=== PATIENT | male | born 1970 | race Caucasian/White ===

== ENCOUNTER 2016-11-30 17:02 | Emergency (ER) | payer OTHER, BC ==
[~2016-11-30] VITALS: Ht 182.9 cm; Wt 86.0 kg
[~2016-11-30 17:02] MED LIST: AMLO2.5T2 PO; ASPCH81X PO; CETI10CH PO; FLNIN NAE; LSN/2025 PO
[2016-11-30 17:05] VITALS: TEMP 36.9; Ht 182.9 cm; Wt 86.0 kg
[2016-11-30] MEDS ORDERED: IBUPROFEN 800 MG TAB PO STA (17:08)
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
--- NOTE | 2016-11-30 17:48 | DIAGNOSTIC IMAGING REPORT ---
RIGHT KNEE 3 VIEWS CLINICAL HISTORY: right knee pain, injury Right pain. Trauma. COMPARISON: None. DISCUSSION: The bones and joint spaces appear intact. There is no evidence of fracture, dislocation or bony disease. There is no evidence for soft tissue swelling. IMPRESSION: Negative study. Electronically signed by: Igor Benitez M.D. 11/30/2016 5:47 PM Dictated Date/Time: 11/30/2016 5:47 PM
[2016-11-30] MEDS ORDERED: FLUT1SPR12 NAE (17:49)
[2016-11-30 18:14] VITALS: BP 142/93; PULSE 80; O2SAT 96
[2016-12-11] MEDS ORDERED: AMLO-110 PO (08:24)
[2016-12-11] MEDS ORDERED: FLUT1SPR12 NAE (08:24)
[2016-12-11] MEDS ORDERED: BUPR100T13 PO (08:24)
[2016-12-11] MEDS ORDERED: LSN/2025 PO (08:24)
[2016-12-13] MEDS ORDERED: ASPI325T45 PO (16:25)
[2016-12-13] MEDS ORDERED: HYDR-5688 PO (16:25)
[2016-12-13] MEDS ORDERED: TRAM-10 PO (16:25)
== END 2016-11-30 18:16 | disposition home or self-care (01) ==
LOC: EDBD 17:02 → C.EDD 17:03
DX: M25.561 Pain in right knee (principal); I10 Essential (primary) hypertension

== ENCOUNTER → 2016-12-04 | Outpatient (CLI) | payer OTHER ==
[~2016-12-04] MED LIST changes: +AMLO-110 PO; -ASPCH81X PO; +ASPI325T45 PO; +BUPR100T13 PO; -FLNIN NAE; +FLUT1SPR12 NAE; +HYDR-5688 PO; +TRAM-10 PO
--- NOTE | 2016-12-04 18:07 | DIAGNOSTIC IMAGING REPORT ---
MRI OF THE RIGHT KNEE CLINICAL HISTORY: Right knee injury and pain. COMPARISON STUDY: Radiograph of the right knee dated 11/30/2016. TECHNIQUE: MRI of the right knee was performed utilizing proton density, T1, and T2-weighted sequences in the axial, sagittal, coronal planes. IV contrast was not administered for this examination. FINDINGS: Menisci: There is a large bucket-handle type tear involving the body and posterior horn of the lateral meniscus. The fragment is flipped centrally into the joint space, best seen on coronal image #19. The medial meniscus appears truncated, possibly related to previous meniscectomy. The remaining portions of the meniscus appear intact. Ligaments: The anterior and posterior cruciate ligaments are intact. The medial and lateral collateral ligaments are within normal limits. Extensor mechanism: The extensor mechanism is intact. Hoffa's fat pad is normal in appearance. Increased signal/edema is seen within the suprapatellar fat pad. Articular cartilage and bone: The articular cartilage is intact and well maintained all 3 compartments. Normal marrow signal is preserved of the visualized bony structures. Joint effusion: There is a large joint effusion. Soft tissues: There is mild intramuscular edema/strain suggested within the vastus lateralis. Strain/edema is also identified within both hips and the gastrocnemius muscle, medial greater than lateral. Fluid is seen tracking along the lateral head of the gastrocnemius. Soft tissue edema is noted along the lateral aspect of the knee and in the popliteal fossa. The musculature surrounding the knee joint is normal in bulk. IMPRESSION: 1. There is a large bucket-handle type tear involving the body and posterior horn of the lateral meniscus. The fragment is flipped centrally into the joint space along the intercondylar notch. 2. There is truncation of the medial meniscus suggesting previous medial meniscectomy. Correlation the patient's surgical history will be required. No definite tearing is identified in the medial meniscus on today's examination. 3. Large joint effusion. 4. Muscular strain/edema is seen within the distal aspect of the vastus lateralis, as well as within both heads of the gastrocnemius. 5. There is superficial and deep soft tissue edema seen along the lateral aspect of the knee and in the popliteal fossa. 6. The collateral ligaments and cruciate ligaments appear maintained. 7. There is nonspecific edema within the suprapatellar fat pad. This is been described in the setting of the quadriceps fat pad impingement syndrome. Clinical correlation will be required. Electronically signed by: Ajit Mcfarland M.D. 12/04/2016 6:06 PM Dictated Date/Time: 12/04/2016 5:57 PM
== END | disposition home or self-care (01) ==
LOC: C.MRIBC 16:18
PROVIDERS: ATTEND Physician Assistant
DX: M76.31 Iliotibial band syndrome, right leg (principal); S83.251A Bucket-handle tear of lateral meniscus, current injury, right knee, initial encounter; X58.XXXA Exposure to other specified factors, initial encounter; M25.461 Effusion, right knee; M79.9 Soft tissue disorder, unspecified; R60.0 Localized edema

== ENCOUNTER → 2016-12-13 | Day surgery (SDC) | payer OTHER ==
[2016-12-11 08:24] VITALS: Ht 182.9 cm; Wt 88.6 kg
[~2016-12-13] VITALS: Ht 182.9 cm; Wt 88.6 kg
[~2016-12-13] MED LIST changes: -AMLO2.5T2 PO; +ATROPINE SULFATE 0.1 MG/ML 5ML SYR IV PRN; +CEFAZOLIN 2000 MG/60 ML D5W IV SCH; +DEXAMETHASONE SOD INJ 4 MG/ML VIAL ONE; +EpHEDrine SULFATE INJ 50 MG/ML AMP IV PRN; +EpHEDrine SULFATE INJ 50 MG/ML AMP ONE; +FENTANYL CITRATE INJ 50 MCG/1 ML 2 ML VIAL ONE; +FLUMAZENIL 0.1 MG/1 ML 10 ML VIAL IV PRN; +KETOROLAC TROMETHAMINE 30 MG/ML VIAL IV STA; +LABETALOL HCL IV 5 MG/ML 20ML IV PRN; +LACTATED RINGER'S 1000ML 1,000 ML IV SCH; +LIDOCAINE HCL 2% 2 ML VIAL (20MG/ML) ONE; +LIDOCAINE/EPINEPHRINE 1% INJ 50 ML VIAL ONE; +MIDAZOLAM HCL 1 MG/ML 2ML VIAL ONE; +MoRPHine SULFATE 2 MG/ML CARP IV PRN; +MoRPHine SULFATE 4 MG/ML 1 ML CARP\\VIAL IV PRN; +NALOXONE HCL 0.4 MG/1 ML VIAL/CARP IV PRN; +ONDANSETRON INJ 2 MG/ML 2 ML VIAL IV PRN; +ONDANSETRON INJ 2 MG/ML 2 ML VIAL ONE; +OXYCODONE/ACETAMINOPHEN 5-325 TAB PO PRN; +PROMETHAZINE HCL INJ 12.5 MG in SODIUM CHLORIDE 0.9% 50ML 50 ML IV PRN; +PROMETHAZINE HCL INJ 25 MG/ML 1 ML VIAL ONE; +PROPOFOL IV EMULSION 10 MG/ML 20 ML VIAL IV ONE; +SODIUM CHLORIDE 0.9% 1000ML 1,000 ML IV SCH; +SODIUM CHLORIDE 0.9% INJ 10 ML VIAL ONE
--- NOTE | 2016-12-13 13:43 | History & Physical Bridge Note ---
H&P Re-Evaluation Bridge Note: I have examined the patient, reviewed the History & Physical and in the interval since the performance of the History & Physical I have noted the following changes of clinical significance: No changes noted
--- NOTE | 2016-12-13 16:24 | [facility] Operative Report ---
Operative Report Operative Date Dec 13, 2016. 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 Presented with locked knee. X-rays/MRI obtained, found to have a bucket handle tear lateral meniscus. Surgical intervention recommended and he agreed to proceed with surgery. Risks/complications discussed, informed consent obtained. Description of Procedure Patient was taken to the operating room, given general anesthesia, given IV Ancef for surgical prophylaxis. Time out performed, prepped and draped in routine sterile fashion. I was present the entire case, please see Dr. Amaya's operative report for further detail. Patient was awakened and taken to the recovery room in stable condition. I attest to the content of the Intraoperative Record and any orders documented therein. Any exceptions are noted below.
--- NOTE | 2016-12-13 16:29 | Discharge Instructions-SurgCtr ---
Discharge Instructions Date of Service Dec 13, 2016. Visit Reason for Visit: Right Lateral Meniscus Tear Discharge Discharge Diagnosis / Problem: lateral meniscus tear Discharge Goals Goal(s): Decrease discomfort, Improve function, Increase independence Activity Recommendations Activity Limitations: per Instructions/Follow-up section Anesthesia . Post Anesthesia Instructions: If you have had General Anesthesia or IV Sedation: * Do not drive today. * Resume driving when surgeon permits. * Do not make important decisions or sign legal documents today. * Call surgeon for: 1. Temperature elevations greater than 101 degrees F. 2. Uncontrollable pain. 3. Excessive bleeding. 4. Persistent nausea and vomiting. 5. Medication intolerance (nausea, vomiting or rash). * For nausea and vomiting use only clear liquids such as: tea, soda, bouillon until nausea subsides, then gradually increase diet as tolerated. * If you have any concerns or questions, call your surgeon's office. If physician is unavailable and it is an emergency, call 911 or go to the nearest emergency room. . Instructions / Follow-Up Instructions / Follow-Up The following are instructions to follow after your Arthroscopic Knee Surgery. ACTIVITY RECOMMENDATIONS: * Minimize activity until your first visit after surgery. * No excessive walking, jogging, sports or laboring. * Return to activity is individualized. Most patients are able to return to every day activities within one month. * Return to sports or intensive labor usually occurs at 2-3 months. * Driving is not permitted until at least your first postoperative visit at a minimum. Please ask your doctor when it is safe to resume driving. If you have an automatic vehicle and your left leg has been operated on, then you may begin driving as soon as you are comfortable and can drive safely. SCHOOL/WORK RECOMMENDATIONS: * You may return to sedentary work or school when you are feeling more comfortable. This is usually 3-7 days after surgery. * Expect increased discomfort with increased activity. Continue to elevate and ice the leg as much as possible. MEDICATIONS: * You will have a prescription for pain medication and an anti-inflammatory medication after surgery. * Use the pain medication for severe pain and the anti-inflammatory for less severe pain. Once the pain medication has run out, try to use the anti-inflammatory medication. If this is not effective, contact the office for assistance. * The pain medication may cause nausea, constipation and drowsiness. You should see how they affect you before driving or similar activity. * The anti-inflammatory medication may cause stomach upset and bleeding. If this occurs let your doctor know immediately . * Take a stool softener like Colace or a laxative like Senokot to prevent constipation. DIET: * Resume previous diet. SPECIAL CARE: ICE: You have the option of an ice cooler, gel packs or ice bags. * If you have an ice cooler, refer to the instructions for that device. The ice cooler may be used continuously. * If you do not have an ice cooler, you will need to use ice bags or gel packs. Do not apply ice directly to the skin. Use a thin dressing or saranya shirt between the skin and ice bag. Apply ice for 20-30 minutes and repeat every 2-4 hours. This is especially important for the first 7-10 days after surgery. Once the pain improves, use ice as needed. ELEVATION: * Keep your leg elevated at or above the level of your heart as much as possible. * Expect some increased discomfort and swelling if you are standing for any length of time. * When lying down, avoid placing anything under your knee. Rather, prop your leg up by placing several pillows under your heel or calf. DRESSING: * Your dressing will be changed at your first therapy appointment approximately 4-5 days after surgery. Band-aids, tape strips or gauze may be applied. You may then change your dressing daily. * Reapply dressing followed by the Jens wrap or Tubi-plumber's assistant stockinet and EBIce cooling pad (if chosen). * Always wash your hands prior to touching the incision area. * Once the stitches are removed, you may leave the wound open to air or cover with an Jens wrap or Tubi-plumber's assistant stockinet. * If you have been given a white elastic stocking (MARQUITA hose), wear as much as possible for the first 1-3 weeks depending on swelling. * Expect some bloody drainage for the first few days after surgery. * Leave the tape strips, if present, in place for 5-7 days. * Band-aids and gauze may be changed daily. CRUTCHES: * You will need to use crutches after surgery. * You may gradually progress to partial weight bearing right leg with the assistance of crutches. BATHING: * You may shower or sponge-bathe immediately after surgery. * The dressing will need to be covered with a plastic bag or plastic wrap until the dressing is changed on the fourth or fifth day after surgery. * Once the dressing has been changed on the fourth or fifth day after surgery, you may shower and get the incision wet. * Wash with regular soap and water. * Do not bathe (submerge the incision), soak, swim or use a hot tub until the incision is completely healed over with normal skin and the doctor has given the OK to proceed. * There is no need to apply any ointments, powders or salves to your incision. * Do not apply alcohol or hydrogen peroxide directly to the incision. * Diluted peroxide (50:50 mixture with sterile saline) may be used to clean dried blood from around the incision area. BRACE: * Leave your brace on you right knee at all times. Keep locked for weight bearing and walking. THERAPY: * You will begin therapy four or five days after surgery. * Organized therapy with the therapist is important for the first 4-6 weeks after surgery. During that time you will attend therapy 1-3 times per week. * You will also need to do daily exercises for range of motion and strength as instructed. PROBLEMS/QUESTIONS: * If you have any problems such as severe pain, numbness, tingling or high fevers or if you have any questions, please contact the office at [phone]. * It is not uncommon to have some numbness and tingling after the surgery especially if you have had a nerve block done. This should gradually improve over the first 1- 2 days. If this persists longer or worsens please contact the office. FOLLOW UP VISIT: * If not already scheduled, please call the office at to schedule a follow-up appointment for 10 days, 6 weeks and 3 months after surgery. * You have a physical therapy appointment on 12/17/16 at 10:30 a.m. * You have a follow up appointment with Dr. Amaya on 12/25/16 at 10:00 a.m. Diet Recommendations Home Diet: no limitations, resume previous diet Procedures Procedures Performed: Right Knee Arthroscopic Lateral Meniscus Repair, chondroplasty of patella and medial femoral condyle Pending Studies Studies pending at discharge: no Medical Emergencies . Who to Call and When: Medical Emergencies: If at any time you feel your situation is an emergency, please call 911 immediately. . Non-Emergent Contact Non-Emergency issues call your: Surgeon Call Non-Emergent contact if: temperature is above 101, your pain is not controlled, your pain is concerning you, wound has increased drainage, you have any medication questions . . "Provider Documentation" section prepared by Carolin Lyle.
[2016-12-13] MEDS: HYDROmorphone INJ 1 MG/ML SYR IV PRN ×2 (16:53→17:15)
--- NOTE | 2016-12-13 17:20 | OPERATIVE REPORT ---
DATE OF OPERATION: 12/13/2016 PREOPERATIVE DIAGNOSIS: Bucket handle lateral meniscus tear, right knee. 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 PROCEDURES: Right knee arthroscopy, arthroscopic lateral meniscus repair, chondroplasty of the patella and medial femoral condyle. SURGEON: Dr. Stephan Amaya. DIMENSION MILL WORKER: Elia Lam, fellow. SECOND DIMENSION MILL WORKER: Carolin Lyle, physician's maintenance assistant. ANESTHESIA: Laryngeal mask. 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 He injured his knee approximately 1-1/2 weeks ago when he was making an arrest. The knee was flexed. He had pain and was unable to straighten the knee. An MRI showed a bucket-handle tear of the lateral meniscus. He has had prior surgery on the knee, which could have been cartilage or meniscus. Treatment options, risks and benefits were discussed. He wished to proceed with repair if possible and we had taken him to the operating room for this. PROCEDURE IN DETAIL: Informed consent was obtained. The patient was identified as Fadi Hernandez. He identified the operative site as the right knee. I marked it with my initials. A preop surgical time out was performed. A preop dose of IV antibiotics was given. He was taken to the operating room and positioned supine on the operating room table. A laryngeal mask anesthetic was administered. A lateral post was used for stressing the knee and tourniquet was applied, but not inflated during the case. The right leg was prepped and draped in the usual sterile fashion. He received a preoperative dose of IV antibiotics, DVT prophylaxis with foot pumps intraoperatively and postoperatively with early mobility and aspirin. Care was taken to avoid extending the knee. He had about a 15-degree loss of terminal extension. Benson assisted flexion was about 110. He had a moderate knee effusion. Keo was diminished in excursion site likely secondary to the tear. He had an intact posterior drawer and no pathological varus or valgus laxity. Prior arthroscopic portals were utilized where necessary. The leg was prepped and draped in the usual sterile fashion. The knee was injected with 1% lidocaine into the fat pad and portal sites preoperatively. Inferolateral viewing portal, superolateral outflow portal, and inferomedial working portal were established. Prior portals views were necessary and were used where able. There was no pathology in the suprapatellar pouch. There was some grade 2 chondrosis of the medial facet of the patella, which was debrided. The trochlea and patella were actually normal. Medial and lateral gutters were unremarkable. There were no loose bodies. The retropatellar fat pad and ligamentum mucosum had previously been resected. The cruciate ligaments were normal. The posteromedial compartment was normal. The medial meniscus was normal, but appeared to be smaller in size and may have had partly removed previously. It was fairly symmetric in appearance. On the femoral condyle, there was chondrosis present with a large unstable flap. This was debrided and overall area about 2 x 1.5 cm of mostly grade 2, but likely some areas of grade 3 chondrosis were noted. There were no grade 4 areas. A microfracture was not performed. Prior to doing any the arthroscopic port in the knee, a bucket-handle tear was identified and reduced. This was a tear at the meniscal capsular junction again posterior to the popliteal hiatus and extended back towards the meniscal root. The tear did not extend anteriorly, passed the popliteal hiatus. The popliteus tendon was normal. There was some grade 1 softening, perhaps some very minor grade 2 changes of the condyle and tibial plateau. There appeared to be some slight irregularity in the coloration and smoothness of the cartilage and perhaps, he had prior chondroplasty. There were no significant cartilaginous defects laterally. The meniscal roots were intact. The tear length was really only about a cm and a half. Repair was elected. The site was prepared by rasping it and also irritating the parameniscal synovium with a shaver. 60 mL of venous blood were drawn and a blood clot was created by using a glass stirring stewart. This clot was then cut in half. An 8-mm cannula was inserted into the medial portal. A zone specific cannula was passed through the plastic cannula and into the center portion of the tear. A suture for the inside-out meniscal repair zone specific system was then passed through the plastic cannula through the zone specific cannula and underneath the meniscus and brought out exiting the skin just 2 mm behind the LCL at the level of the joint line above the fibular head. The needle was cut off. I then backed the zone specific cannula out of the knee, took the other needle on the other, passed it through the clot, tied into a knot and secured and then used the suture to pass within the knee and underneath the meniscus into the level of the tear. I then used the Ceterix Novostitch to pass a circumferential stitch around the meniscus. This initial stitch was placed just at the posterior margin of the popliteus tendon, first through the capsule and then through the meniscus and this was tied using a SCOI knot. I then attempted to use the Novostitch 2 other times. One, I had misfired. The other had the wrong end of the suture pulled thru. I then successfully passed and tied the other stitch, which was about 5-7 mm medial to the other. I had some portion of the posterior capsule, but wanted more reinforcement. I then used a Fast-Fix 360. The first one did not deploy appropriately as the implant did not deploy in the meniscus and then the second was successful in an oblique vertical mattress stitch medially to my first Novostitch. This provided a secure repair. The meniscus was probed and found to be stable. The knee could be flexed beyond 90 and extended without any difficulty. The arthroscopic instruments were removed from the knee. The portals were closed with 4-0 nylon. Soft sterile dressing was applied. The patient awakened from anesthesia without difficulty and taken to recovery room in stable condition. There were no specimens or complications. Counts were correct at the end of case. Blood loss was minimal. At the conclusion of the operation, I spoke to patient's family and informed them of my findings. Postoperative instructions were given. He is unable to work. He will have a partial weightbearing with a hinged brace locked in extension. An Jens wrap was applied from the ankle to thigh. The plan will be for some restriction of range of motion to protect his meniscus. He will be allowed to have partial to full weightbearing. He can do quad sets, leg raises and ankle pumps. DVT prophylaxis with aspirin. I attest to the content of the Intraoperative Record and any orders documented therein. Any exceptions are noted below. JENIFERD
[2016-12-13 17:43] VITALS: TEMP 36.3
[2016-12-13 18:21] VITALS: BP 151/86; O2SAT 96
--- NOTE | 2016-12-17 08:56 | Anesthesia Progress Nt - [facility] ---
Anesthesia Post Op Note Date & Time Dec 17, 2016 at 08:56 Vital Signs Pain Intensity: 5.0 Notes Mental Status: alert / awake / arousable, participated in evaluation Pt Amnestic to Procedure: Yes Nausea / Vomiting: adequately controlled Pain: adequately controlled Airway Patency, RR, SpO2: stable & adequate BP & HR: stable & adequate Hydration State: stable & adequate Anesthetic Complications: no major complications apparent
== END | disposition home or self-care (01) ==
LOC: X.SURG 09:47
PROVIDERS: ATTEND Physical Medicine & Rehabilitation Sports Medicine
DX: S83.281A Other tear of lateral meniscus, current injury, right knee, initial encounter (principal); M22.2X1 Patellofemoral disorders, right knee; M94.20 Chondromalacia, unspecified site; X50.0XXA Overexertion from strenuous movement or load, initial encounter; I10 Essential (primary) hypertension; I45.10 Unspecified right bundle-branch block; Y93.9 Activity, unspecified; Y99.0 Civilian activity done for income or pay

== ENCOUNTER 2022-12-31 21:20 | Observation (INO) ==
--- NOTE | 2022-12-31 22:44 | Emergency Department Note ---
Impression & Plan Episode of confusion, Transient ischemic attack ED Provider Note HISTORY OF PRESENT ILLNESS: Patient is a 52-year-old male presenting with episode of confusion. Patient's helps supply the story. Reports that around 2009 this evening the patient came downstairs and reportedly was very confused and having repetitive speech. He reportedly was like this for around 20 minutes. No reported recent falls or head injury. Patient has never had these symptoms before. He is back to baseline at arrival to the emergency department. Denies any chest pain or shortness of breath. Denies any history of anticoagulation use. No reported head injuries or chiropractic manipulation of his neck. No recent ingestions. He had a headache earlier this evening. On arrival to the emergency department, the patient is answering questions appropriately and reports he is back to his normal self ROS: as above PHYSICAL EXAM: Constitutional: Patient appears in no acute distress. HENT: Head: Normocephalic and atraumatic. Eyes: EOMI, PERRL Mouth/Throat: Mucous membranes moist. Neck: Trachea midline. Neck supple. Cardiovascular: RRR, No murmurs, rubs or gallops. Intact distal pulses. Pulmonary/Chest: No respiratory distress. Breath sounds clear and equal bilaterally. No wheezes or rales. Abdominal: BS +. Abdomen soft, no tenderness, rebound or guarding. Musculoskeletal: No edema, tenderness or deformity noted. Skin: Warm and dry. No rash, erythema, pallor or cyanosis Psychiatric: Appropriate mood and affect for situation. Neurological: Alert and keenly responsive. Facies symmetric. Able to raise ey ebrows, close eyes, smile, puff mouth, stick out tongue, move tongue left and right and raise palate symmetrically. Able to shrug shoulders. PERRLA. SILT to forehead below eye and at jawline. Can hear soft nose bilaterally. Good finger to nose. Strength 5/5 in bilateral upper and lower extremities. SILT throughout bilateral upper and lower extremities. MDM: - Vitals signs showed hypertension. - History obtained via patient. Patient presents with episode of confusion. Patient reportedly was having an episode of confusion and repetitive speech earlier this evening. The episode lasted for around 20 minutes. Patient does not really remember the episode. Denies any chest pain or shortness of breath. Denies any recent fevers. Denies any recent head injury or chiropractic manipulation of his neck - Chronic conditions affecting care: none - Differential diagnoses include, but are not limited to: CVA; TIA; hypoglycemia; electrolyte abnormality; ACS - Order placed for continuous cardiac monitoring. At this time, monitor showed rate of 73 bpm with normal sinus rhythm, per my interpretation. - External medical records reviewed. - EKG reviewed by myself showed normal sinus rhythm. Rate 74 bpm. QTc 450. No acute ischemic changes - Laboratory workup interpreted by myself showed normal WBC; stable electrolytes; normal troponin - UA negative for infection - CXR negative for pneumonia, per my interpretation - CT head wo contrast negative for acute intracranial pathology. - Patient's episode of confusion may be related to a TIA. He has no DVT or PE history. Does report that his father has a history of recurrent TIAs. - Discussion was had with professor of social work about patient's case and need for admission - Hospitalist, Dr. Juarez, consulted for admission. [facility] ASSESSMENT AND PLAN: Diagnosis: TIA; episode of confusion Plan: Admission Past Med/Surg History Social History Smoking Status: Never smoker Preferred Language: Bangladeshi Feels Safe at Home: Yes Allergies Allergies Allergy/AdvReac Type Severity Reaction Status Date / Time No Known Allergies Allergy Unverified 12/13/16 10:01 Home Meds Home Medications Medication Instructions Recorded Confirmed CETIRIZINE HCL (ZYRTEC) 10 mg PO DAILY PRN PRN ##0 06/24/12 Amlodipine (Norvasc) 5 mg PO HS #0 tabs 12/11/16 BUPROPION HCL (WELLBUTRIN) 100 mg PO BID #0 tabs 12/11/16 Fluticasone Propionate (Nasal) 1 spray ADALBERTO DAILY PRN PRN ##0 12/11/16 (Flonase Allergy Relief ) HCTZ/LISINOPRIL (ZESTORETIC 1 tab PO QAM #0 tabs 12/11/16 20MG/25MG) Previous Rx's Medication Instructions Recorded ASPIRIN 325 mg PO BIDM 21 days ##0 12/13/16 Results & Data (ED) Vital Signs Vital Signs - 24 hr 12/31/22 21:24 12/31/22 21:49 12/31/22 21:47 Temperature 36.8 C Temperature Source Temporal Artery Scan Pulse Rate 85 71 75 Pulse Rate [Apical] Pulse Rate from SpO2 Sensor 76 Respiratory Rate 18 15 Respiratory Effort / Characteristics Non-Labored Spontaneous Respiratory Depth Normal Blood Pressure 157/107 H 144/95 H Blood Pressure [Right Arm] Blood Pressure Mean 123 111 Blood Pressure Mean [Right Arm] Blood Pressure Position Sitting Blood Pressure Position [Right Arm] Pulse Oximetry 96 95 Oxygen Delivery Method Room Air Sepsis Recent Fever Within 48 Hours No Sepsis New/Unexplained Change in Mental Status No Sepsis Action Taken by Nursing No Action Required 12/31/22 22:48 12/31/22 22:45 01/01/23 01:13 Temperature Temperature Source Pulse Rate 77 Pulse Rate [Apical] 74 Pulse Rate from SpO2 Sensor 78 Respiratory Rate 16 18 Respiratory Effort / Characteristics Respiratory Depth Blood Pressure 121/93 Blood Pressure [Right Arm] 139/98 Blood Pressure Mean 102 Blood Pressure Mean [Right Arm] 111 Blood Pressure Position Blood Pressure Position [Right Arm] Lying Pulse Oximetry 93 94 94 Oxygen Delivery Method Room Air Room Air Sepsis Recent Fever Within 48 Hours Sepsis New/Unexplained Change in Mental Status Sepsis Action Taken by Nursing 01/01/23 01:42 Temperature Temperature Source Pulse Rate 73 Pulse Rate [Apical] Pulse Rate from SpO2 Sensor Respiratory Rate Respiratory Effort / Characteristics Respiratory Depth Blood Pressure Blood Pressure [Right Arm] Blood Pressure Mean Blood Pressure Mean [Right Arm] Blood Pressure Position Blood Pressure Position [Right Arm] Pulse Oximetry Oxygen Delivery Method Sepsis Recent Fever Within 48 Hours Sepsis New/Unexplained Change in Mental Status Sepsis Action Taken by Nursing Laboratory Data 12/31/22 21:48 12/31/22 21:48 Lab Results 12/31/22 12/31/22 12/31/22 Range/Units 21:48 21:48 21:48 WBC 6.71 (4.8-10.8) K/ul RBC 5.17 (4.70-6.10) M/uL Hgb 15.7 (14.0-18.0) g/dl Hct 45.0 (42.0-52.0) % MCV 87.0 (80.0-100.0) fL MCH 30.4 (25.0-34.0) pg MCHC 34.9 (32.0-36.0) g/dL RDW Std Deviation 40.4 (36.4-46.3) fL RDW Coeff of Won 12.9 (11.5-14.5) % Plt Count 303 (130-400) K/uL MPV 10.6 (9.4-12.4) fL Immature Gran % (Auto) 0.3 % Neut % (Auto) 57.1 % Lymph % (Auto) 29.8 % [place] % (Auto) 10.4 % Eos % (Auto) 1.8 % Baso % (Auto) 0.6 % Neut # (Auto) 3.83 (1.40-6.50) K/uL Lymph # (Auto) 2.00 (1.2-3.4) K/uL [place] # (Auto) 0.70 H (0.11-0.59) K/uL Eos # (Auto) 0.12 (0-0.50) K/uL Baso # (Auto) 0.04 (0-0.2) K/uL Immature Gran # (Auto) 0.02 (0.01-0.20) K/uL PT 10.2 (9.0-12.0) Seconds INR 0.9 (0.9-1.1) Sodium 141 (136-145) mmol/L Potassium 3.6 (3.5-5.1) mmol/L Chloride 103 (98-107) mmol/L Carbon Dioxide 29 (21-32) mmol/L Anion Gap 9 (3-11) BUN 22 (6-23) mg/dl Creatinine 1.20 (0.6-1.4) mg/dl Est Cr Clr Drug Dosing 89.3 ml/min Est GFR ( Amer) 80.7 ml/min Est GFR (Non-Af Amer) 69.6 ml/min BUN/Creatinine Ratio 18.3 (10-20) Glucose 118 H (70-99(Fasting)) mg/dl Calcium 10.3 (8.6-10.3) mg/dl Total Bilirubin 0.4 (0.2-1.0) mg/dl AST 22 (13-39) U/L ALT 25 (7-52) U/L Alkaline Phosphatase 67 (34-104) U/L Troponin I High Sens 4.9 (0-20) pg/ml Total Protein 7.4 (6.0-8.3) gm/dl Albumin 4.6 (3.4-5.0) gm/dl Globulin 2.8 (2.5-4.0) gm/dl Albumin/Globulin Ratio 1.6 (0.9-2) Imaging Data Radiologist's Impression: Head CT 12/31/22 22:41 Exam(s): CT HEAD Without Contrast EXAM: CT Head Without Intravenous Contrast CLINICAL HISTORY: Reason for exam: episode of confusion. TECHNIQUE: Axial computed tomography images of the head/brain without intravenous contrast. Automated exposure control was utilized for the study. A dose lowering technique was utilized adhering to the principles of ALARA. COMPARISON: None. FINDINGS: Brain: Mild parenchymal volume loss with chronic microvascular ischemic changes. No hemorrhage. Ventricles: Unremarkable. No ventriculomegaly. Bones/joints: Unremarkable. No acute fracture. Soft tissues: Unremarkable. Sinuses: Retention cyst in the right maxillary sinus. Mucosal thickening in the paranasal sinuses. Mastoid air cells: Unremarkable as visualized. No mastoid effusion. IMPRESSION: 1. No intracranial hemorrhage or other acute intracranial abnormality. 2. Mild parenchymal volume loss with chronic microvascular ischemic changes. Electronically signed by: Cl Tristan MD 12/31/22 23:25 PM Discharge Plan Visit Data Chief Complaint: TIA Symptoms Stated Complaint: LAPS IN MEMORY,HEADACHE,CONFUSSION ED Provider: Terrie Tillman Discharge Problem: Episode of confusion, Transient ischemic attack Forms Stand Alone Forms: My [facility] [employer] Prescriptions Prescriptions: No Action CETIRIZINE HCL (ZYRTEC) 10 MG CHW 10 mg PO DAILY PRN (Reason: PRN) Qty: 0 Amlodipine (Norvasc) 5 MG tablet 5 mg PO HS Qty: 0 BUPROPION HCL (WELLBUTRIN) 100 MG tablet 100 mg PO BID Qty: 0 Fluticasone Propionate (Nasal) (Flonase Allergy Relief Ch) 50 MCG/ACT SPR 1 spray ADALBERTO DAILY PRN (Reason: PRN) Qty: 0 HCTZ/LISINOPRIL (ZESTORETIC 20MG/25MG) 1 EA tablet 1 tab PO QAM Qty: 0 ASPIRIN 325 MG tablet 325 mg PO BIDM 21 Days Qty: 0 0RF Referrals Referrals: Katerin Cummings MD [Outside Practitioners] -
[2022-12-31 22:55] LABS: Basophils # (auto) 0.04 K/uL (0-0.2); Basophils % (auto) 0.6 %; Eosinophils # (auto) 0.12 K/uL (0-0.50); Eosinophils % (auto) 1.8 %; Hemoglobin 15.7 g/dl (14.0-18.0); Immature Granulocytes # (auto) 0.02 K/uL (0.01-0.20); Immature Granulocytes % (auto) 0.3 %; Lymphocytes % (auto) 29.8 %; Mean Corpuscular Hemoglobin 30.4 pg (25.0-34.0); Mean Corpuscular Hgb Conc 34.9 g/dL (32.0-36.0); Mean Platelet Volume 10.6 fL (9.4-12.4); Monocytes % (auto) 10.4 %; Neutrophils # (auto) 3.83 K/uL (1.40-6.50); Neutrophils % (auto) 57.1 %; Platelet Count 303 K/uL (130-400); RDW Coefficient of Variation 12.9 % (11.5-14.5); RDW Standard Deviation 40.4 fL (36.4-46.3); Red Blood Count 5.17 M/uL (4.70-6.10); White Blood Count 6.71 K/ul (4.8-10.8)
[2022-12-31 23:02] LABS: Albumin Globulin Ratio 1.6 (0.9-2); Albumin Level 4.6 gm/dl (3.4-5.0); BUN Creatinine Ratio 18.3 (10-20); Bilirubin,Total 0.4 mg/dl (0.2-1.0); Calcium 10.3 mg/dl (8.6-10.3); Creatinine Clr Calc Pharmacy 89.3 ml/min; Est GFR (African American) 80.7 ml/min; Est GFR (Non-African American) 69.6 ml/min; Globulin 2.8 gm/dl (2.5-4.0); Potassium 3.6 mmol/L (3.5-5.1); Total Protein 7.4 gm/dl (6.0-8.3)
[2022-12-31 23:08] LABS: Troponin I High Sensitivity 4.9 pg/ml (0-20)
[2022-12-31 23:23] LABS: INR 0.9 (0.9-1.1); Prothrombin Time 10.2 Seconds (9.0-12.0)
--- NOTE | 2022-12-31 23:26 | CT Scan Report ---
Exam(s): CT HEAD Without Contrast EXAM: CT Head Without Intravenous Contrast CLINICAL HISTORY: Reason for exam: episode of confusion. TECHNIQUE: Axial computed tomography images of the head/brain without intravenous contrast. Automated exposure control was utilized for the study. A dose lowering technique was utilized adhering to the principles of ALARA. COMPARISON: None. FINDINGS: Brain: Mild parenchymal volume loss with chronic microvascular ischemic changes. No hemorrhage. Ventricles: Unremarkable. No ventriculomegaly. Bones/joints: Unremarkable. No acute fracture. Soft tissues: Unremarkable. Sinuses: Retention cyst in the right maxillary sinus. Mucosal thickening in the paranasal sinuses. Mastoid air cells: Unremarkable as visualized. No mastoid effusion. IMPRESSION: 1. No intracranial hemorrhage or other acute intracranial abnormality. 2. Mild parenchymal volume loss with chronic microvascular ischemic changes. Electronically signed by: Cl Tristan MD 12/31/22 23:25 PM
[2023-01-01] MEDS ORDERED: LACTATED RINGER'S 1,000 ML IV ONE (01:52)
--- NOTE | 2023-01-01 02:23 | History & Physical Report ---
Date of Service January 01, 2023 Assessment & Plan (1) Episode of confusion: Plan: Transient amnesia with headache symptoms hypertension, slightly elevated upon arrival at the ER hyperlipidemia, not on maintenance medications Hyperglycemia rule out DM CODY on CPAP OBS Medical telemetry MRI brain given headache symptoms Cardiovascular work-up (TTE and carotid Dopplers) given amnesia Neurology consult Re: Transient amnesia Check hemoglobin A1c DVT prophylaxis per Lovenox subcu Full code Text document was generated using Powered voice recognition software. It may contain grammatical or spelling errors. Kindly contact undersigned for clarification of any documentation item in question. History of Present Illness Chief Complaint: Transient confusion, forgetfulness Primary Care Provider: Opal Hong DO History obtained from patient and records. Medical history significant for hypertension, hyperlipidemia, CODY on CPAP. For about 20 years now patient will have intermittent hemicranial headaches occurring about 3 times a year associated with visual spots/aura which patient self diagnosed to be migraine attacks. Patient had transient left-sided headache yesterday afternoon which has remitted to migraine attack. A few hours later, patient felt confused, did not know where he was, could not remember a lot of things. No slurred speech, arm or leg weakness, or seizures noted at home. Patient denies chest pain, SOB. No unusual stress at home. Tick exposure during hunting last week. Improved symptoms at time of arrival at the ER. 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 Allergies Allergy/AdvReac Type Severity Reaction Status Date / Time No Known Allergies Allergy Unverified 01/01/23 02:41 Home Medications Medication Instructions Recorded Confirmed Type amlodipine 10 mg tablet 10 mg PO DAILY 01/01/23 01/01/23 History cetirizine 10 mg tablet (Zyrtec) 10 mg PO DAILY 01/01/23 01/01/23 History fluticasone propionate 50 1 spray intranasal DAILY 01/01/23 01/01/23 History mcg/actuation nasal spray,suspension (Flonase Allergy Relief) hydrochlorothiazide 25 mg tablet 25 mg PO DAILY 01/01/23 01/01/23 History lisinopril 40 mg tablet 40 mg PO DAILY 01/01/23 01/01/23 History multivitamin 1 tab PO DAILY 01/01/23 01/01/23 History omega-3 fatty acids 1,000 mg 0 mg PO DAILY 01/01/23 01/01/23 History capsule spironolactone 25 mg tablet 25 mg PO DAILY 01/01/23 01/01/23 History Past Med/Surg History Social History Smoking Status: Never smoker Preferred Language: Irish Feels Safe at Home: Yes Review of Systems Review of Systems: As per HPI, all other systems reviewed and negative Physical Exam Physical Exam: GENERAL: Comfortable, pleasant, no respiratory distress SKIN: Normal color, warm HEENT: [place] palpebral conjunctivae, no ptosis, dry buccal mucosa NECK : Supple, no tenderness CHEST : CTA, no tenderness HEART : RRR, no obvious murmurs ABDOMEN: Some distention, nontender EXTREMITIES : No LE swelling/tenderness, no other conspicuous deformities noted NEUROLOGIC : Coherent, no facial asymmetry, no other gross focality Results & Data Results & Data Vital Signs (Past 12 Hours) Vital Signs Temp Pulse Pulse Resp BP BP Pulse Ox 01/01/23 01:42 73 01/01/23 01:13 74 18 139/98 94 12/31/22 22:45 77 16 121/93 94 12/31/22 22:48 93 12/31/22 21:47 75 15 144/95 H 95 12/31/22 21:49 71 12/31/22 21:24 36.8 C 85 18 157/107 H 96 O2 Del Method 01/01/23 01:42 01/01/23 01:13 Room Air 12/31/22 22:45 12/31/22 22:48 Room Air 12/31/22 21:47 12/31/22 21:49 12/31/22 21:24 Room Air Laboratory Results Laboratory Results WBC 6.71 K/ul (4.8-10.8) 12/31/22 21:48 RBC 5.17 M/uL (4.70-6.10) 12/31/22 21:48 Hgb 15.7 g/dl (14.0-18.0) 12/31/22 21:48 Hct 45.0 % (42.0-52.0) 12/31/22 21:48 MCV 87.0 fL (80.0-100.0) 12/31/22 21:48 MCH 30.4 pg (25.0-34.0) 12/31/22 21:48 MCHC 34.9 g/dL (32.0-36.0) 12/31/22 21:48 RDW Std Deviation 40.4 fL (36.4-46.3) 12/31/22 21:48 RDW Coeff of Won 12.9 % (11.5-14.5) 12/31/22 21:48 Plt Count 303 K/uL (130-400) 12/31/22 21:48 MPV 10.6 fL (9.4-12.4) 12/31/22 21:48 Immature Gran % (Auto) 0.3 % 12/31/22 21:48 Neut % (Auto) 57.1 % 12/31/22 21:48 Lymph % (Auto) 29.8 % 12/31/22 21:48 [place] % (Auto) 10.4 % 12/31/22 21:48 Eos % (Auto) 1.8 % 12/31/22 21:48 Baso % (Auto) 0.6 % 12/31/22 21:48 Neut # (Auto) 3.83 K/uL (1.40-6.50) 12/31/22 21:48 Lymph # (Auto) 2.00 K/uL (1.2-3.4) 12/31/22 21:48 [place] # (Auto) 0.70 K/uL (0.11-0.59) H 12/31/22 21:48 Eos # (Auto) 0.12 K/uL (0-0.50) 12/31/22 21:48 Baso # (Auto) 0.04 K/uL (0-0.2) 12/31/22 21:48 Immature Gran # (Auto) 0.02 K/uL (0.01-0.20) 12/31/22 21:48 PT 10.2 Seconds (9.0-12.0) 12/31/22 21:48 INR 0.9 (0.9-1.1) 12/31/22 21:48 Sodium 141 mmol/L (136-145) 12/31/22 21:48 Potassium 3.6 mmol/L (3.5-5.1) 12/31/22 21:48 Chloride 103 mmol/L (98-107) 12/31/22 21:48 Carbon Dioxide 29 mmol/L (21-32) 12/31/22 21:48 Anion Gap 9 (3-11) 12/31/22 21:48 BUN 22 mg/dl (6-23) 12/31/22 21:48 Creatinine 1.20 mg/dl (0.6-1.4) 12/31/22 21:48 Est Cr Clr Drug Dosing 89.3 ml/min 12/31/22 21:48 Est GFR ( Amer) 80.7 ml/min 12/31/22 21:48 Est GFR (Non-Af Amer) 69.6 ml/min 12/31/22 21:48 BUN/Creatinine Ratio 18.3 (10-20) 12/31/22 21:48 Glucose 118 mg/dl (70-99(Fasting)) H 12/31/22 21:48 Calcium 10.3 mg/dl (8.6-10.3) 12/31/22 21:48 Total Bilirubin 0.4 mg/dl (0.2-1.0) 12/31/22 21:48 AST 22 U/L (13-39) 12/31/22 21:48 ALT 25 U/L (7-52) 12/31/22 21:48 Alkaline Phosphatase 67 U/L (34-104) 12/31/22 21:48 Troponin I High Sens 4.9 pg/ml (0-20) 12/31/22 21:48 Total Protein 7.4 gm/dl (6.0-8.3) 12/31/22 21:48 Albumin 4.6 gm/dl (3.4-5.0) 12/31/22 21:48 Globulin 2.8 gm/dl (2.5-4.0) 12/31/22 21:48 Albumin/Globulin Ratio 1.6 (0.9-2) 12/31/22 21:48 SARS-CoV-2, RNA, NAAT NEGATIVE (NEGATIVE) 01/01/23 01:[address] 12/31/22 22:41 Exam(s): CT HEAD Without Contrast EXAM: CT Head Without Intravenous Contrast CLINICAL HISTORY: Reason for exam: episode of confusion. TECHNIQUE: Axial computed tomography images of the head/brain without intravenous contrast. Automated exposure control was utilized for the study. A dose lowering technique was utilized adhering to the principles of ALARA. COMPARISON: None. FINDINGS: Brain: Mild parenchymal volume loss with chronic microvascular ischemic changes. No hemorrhage. Ventricles: Unremarkable. No ventriculomegaly. Bones/joints: Unremarkable. No acute fracture. Soft tissues: Unremarkable. Sinuses: Retention cyst in the right maxillary sinus. Mucosal thickening in the paranasal sinuses. Mastoid air cells: Unremarkable as visualized. No mastoid effusion. IMPRESSION: 1. No intracranial hemorrhage or other acute intracranial abnormality. 2. Mild parenchymal volume loss with chronic microvascular ischemic changes. Electronically signed by: Cl Tristan MD 12/31/22 23:25 PM Diagnostic Findings EKG as per my interpretation : Rate 75, NSR, LAD, LAFB, T wave abnormalities septal leads
[2023-01-01 02:46] LABS: Lyme Ab IgG w/WB Rflx Negative (Negative); Lyme Ab IgM w/WB Rflx Negative (Negative)
[2023-01-01 02:47] LABS: Appearance Urine Clear (Clear); Bacteria Urine Automated Negative (Negative); Bilirubin Urine Negative (Negative); Blood Urine Negative (Negative); Color Urine Yellow; Glucose Urine UA Negative (Negative); Ketones Urine Negative (Negative); Leukocyte Esterase Urine Negative (Negative); Nitrite Urine Negative (Negative); Protein Urine 1+ (Negative); RBC Urine Automated 0-4 /hpf (0-4); Specific Gravity Urine 1.023 (1.000-1.030); Urobilinogen Urine Negative (Negative)
[2023-01-01] MEDS ORDERED: GADOBUTROL 65ML VIAL IV ONE (03:05)
[2023-01-01] MEDS ORDERED: PROMETHAZINE HCL 12.5 MG in SODIUM CHLORIDE 0.9% 50 ML IV PRN (03:34)
[2023-01-01] MEDS ORDERED: LORazepam 0.5 MG TAB PO PRN (03:34)
[2023-01-01] MEDS ORDERED: traMADol HCL 50 MG TABLET PO PRN (03:34)
[2023-01-01] MEDS ORDERED: ACETAMINOPHEN 325 MG TAB PO PRN (03:34)
--- NOTE | 2023-01-01 04:20 | Magnetic Resonance Report ---
Exam(s): MRI HEAD W/WO Contrast IV Amt: 10cc gadavist EXAM: MR Head Without and With Intravenous Contrast CLINICAL HISTORY: Reason for exam: gann. TECHNIQUE: Magnetic resonance images of the head/brain without and with intravenous contrast in multiple planes. CONTRAST: Patient received 10cc gadavist of IV contrast COMPARISON: CT head 12/31/2022 FINDINGS: Brain: Periventricular and subcortical white matter T2/FLAIR hyperintense foci. No hemorrhage. No acute infarct. On postcontrast imaging, small curvilinear enhancement adjacent to the left lateral ventricle in the left parietal lobe may be small developmental venous anomaly. Series 10 image 18. Ventricles: Unremarkable. Bones/joints: Unremarkable. Sinuses: Paranasal sinus disease. Right maxillary sinus mucus retention cysts or polyps. No acute sinusitis. Mastoid air cells: Unremarkable as visualized. No mastoid effusion. Orbits: Unremarkable as visualized. IMPRESSION: 1. No evidence of acute intracranial abnormality. 2. Periventricular and subcortical white matter T2/FLAIR hyperintense foci likely reflects chronic small vessel disease. Also consider other etiologies such as demyelinating disease, vasculitis. 3. Query small developmental venous anomaly in the left parietal lobe adjacent to the lateral ventricle Electronically signed by: Nereida Hunt M.D. 01/01/23 04:19 AM
[2023-01-01 04:59] LABS: Basophils # (auto) 0.05 K/uL (0-0.2); Basophils % (auto) 0.8 %; Eosinophils # (auto) 0.12 K/uL (0-0.50); Hematocrit (blood only) 42.9 % (42.0-52.0); Hemoglobin 14.8 g/dl (14.0-18.0); Immature Granulocytes # (auto) 0.02 K/uL (0.01-0.20); Immature Granulocytes % (auto) 0.3 %; Lymphocytes # (auto) 1.91 K/uL (1.2-3.4); Lymphocytes % (auto) 31.5 %; Mean Corpuscular Hemoglobin 30.2 pg (25.0-34.0); Mean Corpuscular Hgb Conc 34.5 g/dL (32.0-36.0); Mean Corpuscular Volume 87.6 fL (80.0-100.0); Mean Platelet Volume 10.5 fL (9.4-12.4); Monocytes # (auto) 0.64 K/uL (0.11-0.59); Monocytes % (auto) 10.6 %; Neutrophils # (auto) 3.32 K/uL (1.40-6.50); Neutrophils % (auto) 54.8 %; Platelet Count 286 K/uL (130-400); RDW Coefficient of Variation 12.9 % (11.5-14.5); RDW Standard Deviation 41.1 fL (36.4-46.3); White Blood Count 6.06 K/ul (4.8-10.8)
--- NOTE | 2023-01-01 06:57 | XRay Report ---
XR chest 1V portable CLINICAL HISTORY: confusion TECHNIQUE: Single frontal radiograph of the chest was obtained. Comparison: None available at the time of this dictation. FINDINGS: No lines and tubes are seen. The cardiomediastinal silhouette is normal. The lungs are clear. No evid ence of pleural effusion or pneumothorax. IMPRESSION: No acute chest disease. ACT 112: Negative or not required by law. Electronically signed by: Geovanny Estrada M.D. 01/01/2023 6:55 AM
[2023-01-01 07:59] LABS: Estimated Average Glucose 103 mg/dl; Hemoglobin A1C 5.2 % (4.5-5.6)
--- NOTE | 2023-01-01 08:10 | Ultrasound Report ---
ULTRASOUND OF THE CAROTID ARTERIES CLINICAL HISTORY: transient amnesia COMPARISON: None available at the time of this dictation. TECHNIQUE: Real-time, grayscale, and color Doppler sonography of the carotid arteries is performed. I mages are reviewed in the transverse and longitudinal planes. FINDINGS: The carotid arteries are patent bilaterally and demonstrate antegrade flow. There is no atherosclerot ic plaque on the right and no atherosclerotic plaque on the left. Normal doppler arterial waveforms a re seen throughout. Velocity measurements are listed below. Common carotid peak systolic velocity (cm/sec): RIGHT: 63.6 LEFT: 59.7 ICA peak systolic velocity (cm/sec): RIGHT: 46.9 LEFT: 42.9 ICA/CC peak systolic ratio: RIGHT: 0.7 LEFT: 0.7 Antegrade flow was shown in the vertebral arteries. The external carotid arteries are patent. IMPRESSION: 1. There is no sonographic evidence of hemodynamically significant stenosis in the right or left car otid arterial system. 2. Antegrade flow is shown in the vertebral arteries. Society of Radiologists in Ultrasound consensus guidelines: Normal: ICA PSV is <125 cm/sec and no plaque or intimal thickening is visible sonographically additional criteria include ICA/CCA PSV ratio <2.0 and ICA EDV <40 cm/sec <50% ICA stenosis: ICA PSV is <125 cm/sec and plaque or intimal thickening is visible sonographically additional criteria include ICA/CCA PSV ratio <2.0 and ICA EDV <40 cm/sec 50-69% ICA stenosis: ICA PSV is 125-230 cm/sec and plaque is visible sonographically additional criteria include ICA/CCA PSV ratio of 2.0-4.0 and ICA EDV of 40-100 cm/sec ?70% ICA stenosis but less than near occlusion: ICA PSV is >230 cm/sec and visible plaque and luminal narrowing are seen at tong-scale and color Dopp ler ultrasound (the higher the Doppler parameters lie above the threshold of 230 cm/sec, the greater the likelihood of severe disease) additional criteria include ICA/CCA PSV ratio >4 and ICA EDV >100 cm/sec ACT 112: Negative or not required by law. Electronically signed by: Geovanny Estrada M.D. 01/01/2023 8:08 AM
[2023-01-01] MEDS: ENOXAPARIN INJ 40 MG/0.4 ML SYR SQ SCH (08:38)
[2023-01-01] MEDS: CETIRIZINE HCL 10 MG TABLET PO SCH (08:38)
[2023-01-01] MEDS: FLUTICASONE PROPIONATE NA SPR 16 GM BTL SCH (08:39)
[2023-01-01] MEDS: MULTIVITAMIN TAB PO SCH (08:39)
[2023-01-01] MEDS: lisinopril 40 MG TAB PO SCH (08:39)
[2023-01-01] MEDS ORDERED: amLODIPine BESYLATE 5 MG TAB PO SCH ×2 (09:00→21:45)
--- NOTE | 2023-01-01 12:57 | Electrocardiogram Report ---
Test Reason : Blood Pressure : / mmHG Vent. Rate : 074 BPM Atrial Rate : 074 BPM P-R Int : 162 ms QRS Dur : 092 ms QT Int : 406 ms P-R-T Axes : 030 -12 023 degrees QTc Int : 450 ms Normal sinus rhythm Nonspecific ST abnormality Abnormal ECG When compared with ECG of 24-JUN-2012 19:30, T wave amplitude has decreased in Anterior leads Confirmed by Bakari Castellanos ([id number]) on 01/01/2023 12:57:28 PM Referred By: REFERRED SELF Confirmed By:Bakari Castellanos
--- NOTE | 2023-01-01 13:58 | Neurology Consultation ---
Date of Consultation January 01, 2023 Assessment & Plan (1) TGA (transient global amnesia): Plan Probable episode of transient global amnesia although I note that the episode was preceded by one of patient's typical migrainous auras and that the amnestic episode duration was reportedly brief, perhaps only 20 minutes. Therefore, could also consider an acephalgic/complicated migraine event or possibly TIA. Patient's brain MRI was negative for acute or subacute stroke or other process although did reveal chronic small vessel ischemic change. He does have a history of hypertension which would be an associated risk factor. A history of migrainous aura may also predispose to nonspecific white matter T2/FLAIR hyperintensity on MRI. His carotid ultrasound and echocardiogram were unremarkable. Given that patient's MRI does reveal a fair amount of chronic small vessel ischemic disease, would recommend checking a lipid panel. A fasting lipid panel could be done in the outpatient setting as well, with appropriate follow-up with his PCP. He should continue to follow with his PCP for ongoing management of hypertension. His blood pressure does appear to be well controlled currently although he was slightly hypertensive at his initial ED assessment. There does not appear to be a definitive reason to start this patient on antiplatelet/daily low-dose aspirin therapy. Would consider obtaining 30-day mobile outpatient cardiac telemetry. I see no reason for inpatient or outpatient EEG at this time. I do not think he would need additional outpatient neurologic follow-up. However, if he were to have additional episodes, he will need up-to-date evaluation in that context. History of Present Illness Reason for Consultation: Transient amnesia Requesting Physician: Dr. Juarez Attending Physician: Dhaval Allison MD History of Present Illness The patient is a 52-year-old male who presented to the emergency department yesterday for further assessment of confusion. He was apparently repeating himself and seemed a little confused or disoriented according to his spouse. He recalls having an episode of transient migrainous aura about an hour or so, prior to symptom onset. He notes a history of ocular migraine but has never had an associated episode of confusion or amnesia. He denies any recent stress or illness. He denies experiencing any associated headache, vertigo, slurred speech, or focal weakness or sensory loss. Symptom duration was estimated to be about 20 minutes. Symptoms resolved prior to his evaluation in the emergency department. A CT of the head was negative for hemorrhage or acute process although there was evidence of mild atrophy and chronic microvascular ischemic disease. A follow-up brain MRI was negative for acute or subacute infarct, again noting, periventricular and subcortical white matter small vessel ischemic change although other potential pathologies such as demyelinating disease and vasculitis also considered. There is also a possible, small, developmental venous anomaly within the left parietal lobe, not clinically significant. I did independently review these images. A carotid ultrasound was unremarkable. Currently, the patient feels fine, and continues to deny headache, vision loss, change in speech, focal weakness, or other specific neurologic symptoms. Allergies Allergy/AdvReac Type Severity Reaction Status Date / Time No Known Allergies Allergy Unverified 01/01/23 02:41 Home Medications Medication Instructions Recorded Confirmed Type amlodipine 10 mg tablet 10 mg PO DAILY 01/01/23 01/01/23 History cetirizine 10 mg tablet (Zyrtec) 10 mg PO DAILY 01/01/23 01/01/23 History fluticasone propionate 50 1 spray intranasal DAILY 01/01/23 01/01/23 History mcg/actuation nasal spray,suspension (Flonase Allergy Relief) hydrochlorothiazide 25 mg tablet 25 mg PO DAILY 01/01/23 01/01/23 History lisinopril 40 mg tablet 40 mg PO DAILY 01/01/23 01/01/23 History multivitamin 1 tab PO DAILY 01/01/23 01/01/23 History omega-3 fatty acids 1,000 mg 0 mg PO DAILY 01/01/23 01/01/23 History capsule spironolactone 25 mg tablet 25 mg PO DAILY 01/01/23 01/01/23 History Patient History Social History Smoking Status: Never smoker Second Hand Exposure: No; Do You Dip or Chew Tobacco: No; Tobacco Cessation Education Requested by Patient: No Hx Alcohol Use: No Hx Substance Use: No Preferred Language: Yi Communication Ability: Effective Beliefs That Will Affect Care: None Current Living Situation: Family Other Information That Helps Us Care for You: No Feels Safe at Home: Yes Safety Concerns: Feels Safe At This Time Assistive Devices: CPAP Review of Systems Constitutional: no fever and no chills Eyes: no blind spots and no diplopia Ear, Nose, Mouth, Throat: no ear pain and no hearing loss Respiratory: no cough and no dyspnea Cardiovascular: no chest pain and no palpitations Gastrointestinal: no nausea and no vomiting Genitourinary: no dysuria or no urinary incontinence Musculoskeletal: no neck pain and no myalgia Integumentary: no rash and no lesions Neurologic: as per Subjective / HPI Psychiatric: no depression and no anxiety Hematologic / Lymphatic: no easy bleeding and no easy bruising Exam (Neuro) Constitutional: well developed and well nourished; no acute distress Eyes: normal visual apple by confrontation, PERRL, normal accommodation and EOM intact bilaterally; no fundoscopic abnormality, no nystagmus and no papilledema Cardiovascular: Vessels: normal carotid upstroke; no carotid bruit Neurologic: Oriented to:: Person, Place and Time Memory: Short Term Intact and Remote Intact Attention: Span Intact and Concentration Intact Language: Naming Objects and Repeating Phrases Speech Fluency: negative Dysarthria Speech Aphasia: negative Aphasia Fund of Knowledge: Current Events, Past History and Vocabulary Cranial Nerves: Normal II (Visual apple full to confrontation, visual acuity normal), III, IV, (Pupils equal round reactive to light and accommodation, eye movements normal), V (Facial sensation intact), VII (There is no facial droop or weakness), VIII (Hearing intact), IX, X (Palate elevates to midline), XI (Shoulder shrug intact) and XII (Tongue protrudes to midline) Motor Strength: Normal Lower Extremities and Normal Upper Extremities; negative Pronator Drift Motor Tone: Normal Lower Extremities and Normal Upper Extremities Muscle Bulk/Involuntary Movements: No Involuntary Movements; negative Muscle Atrophy Sensation: Light Touch Intact, Pain/Temperature Intact, Vibration Intact and Proprioception Intact Coordination: Normal; negative Limited Balance, Dysdiadochokinesia, Finger-Nose Abnormal or Heel-[place] Abnormal Deep Tendon Reflexes: Rt Triceps: 2+, Lt Triceps: 2+, Rt Biceps: 2+, Lt Biceps: 2+, Rt Brachioradialis: 2+, Lt Brachioradialis: 2+, Rt Patellar: 2+, Lt Patellar: 2+, Rt Ankle: 2+ and Lt Ankle: 2+ Special Tests: negative Babinski Present Gait: Normal Station and Gait Results & Data Vital Signs (Past 12 Hours) Vital Signs Pulse Pulse Resp BP BP Pulse Ox O2 Del Method 01/01/23 13:30 84 17 01/01/23 13:00 78 15 01/01/23 12:34 140/97 98 Room Air 01/01/23 12:34 79 17 01/01/23 12:30 77 15 01/01/23 12:00 73 19 01/01/23 11:30 75 16 01/01/23 11:00 76 15 01/01/23 10:30 78 20 98 Room Air 01/01/23 10:00 65 14 01/01/23 09:30 71 14 01/01/23 09:00 71 16 01/01/23 09:08 83 01/01/23 08:35 70 16 97 Room Air 01/01/23 08:35 119/92 01/01/23 06:30 93 Room Air 01/01/23 05:34 61 18 133/93 93 Room Air 01/01/23 01:42 73 Laboratory Results WBC 6.06, hemoglobin 14.8, hematocrit 42.9, MCV 87.6, platelet count 286, sodium 141, potassium 3.6, BUN 22, creatinine 1.20, glucose 118, hemoglobin A1c 5.2, magnesium 2.0, AST 22, ALT 25, TSH 4.385, Lyme screening negative, SARS-CoV-[address] of the head, brain MRI, and carotid ultrasound are as described in history of present illness. An echocardiogram reveals normal left ventricular size, moderate concentric LVH, left ventricular wall motion normal, EF 60 to 65%, grade 1 diastolic dysfunction, intra-atrial septum intact with no evidence for ASD, left atrial size normal. An electrocardiogram revealed a normal sinus rhythm, 74 bpm. PG Care Time/CCT Total # of Minutes Spent Total Time Spent with Patient: Total time spent is greater than 50% in coordination of care (as documented) at patient's floor/unit and/or counseling patient: 80 minutes Coding Level of Care Code 33290 INT INP/OBS CARE 3/75MIN Diagnoses TGA (transient global amnesia) G45.4
--- NOTE | 2023-01-01 18:07 | Communication Note ---
Date of Service: January 01, 2023 Came in with transient global amnesia which improved following admission and the apparent investigations remain unremarkable The patient was examined and will have a full progress note tomorrow. Dr Ariel Allison
[2023-01-02 08:29] LABS: Basophils # (auto) 0.04 K/uL (0-0.2); Basophils % (auto) 0.7 %; Eosinophils # (auto) 0.12 K/uL (0-0.50); Eosinophils % (auto) 2.2 %; Hematocrit (blood only) 44.5 % (42.0-52.0); Hemoglobin 15.4 g/dl (14.0-18.0); Immature Granulocytes # (auto) 0.02 K/uL (0.01-0.20); Immature Granulocytes % (auto) 0.4 %; Lymphocytes # (auto) 1.75 K/uL (1.2-3.4); Lymphocytes % (auto) 31.6 %; Mean Corpuscular Hgb Conc 34.6 g/dL (32.0-36.0); Mean Corpuscular Volume 86.6 fL (80.0-100.0); Mean Platelet Volume 10.5 fL (9.4-12.4); Monocytes # (auto) 0.64 K/uL (0.11-0.59); Monocytes % (auto) 11.6 %; Neutrophils # (auto) 2.97 K/uL (1.40-6.50); Neutrophils % (auto) 53.5 %; Platelet Count 273 K/uL (130-400); RDW Standard Deviation 40.2 fL (36.4-46.3); Red Blood Count 5.14 M/uL (4.70-6.10); White Blood Count 5.54 K/ul (4.8-10.8)
[2023-01-02] MEDS: MULTIVITAMIN TAB PO SCH (08:29)
[2023-01-02] MEDS: FLUTICASONE PROPIONATE NA SPR 16 GM BTL SCH (08:30)
[2023-01-02] MEDS: lisinopril 40 MG TAB PO SCH (08:30)
[2023-01-02] MEDS: ENOXAPARIN INJ 40 MG/0.4 ML SYR SQ SCH (08:31)
[2023-01-02] MEDS: CETIRIZINE HCL 10 MG TABLET PO SCH (08:31)
[2023-01-02 08:32] LABS: BUN Creatinine Ratio 19.5 (10-20); Calcium 9.9 mg/dl (8.6-10.3); Chol HDL Ratio 6.3 (0-5); Creatinine Clr Calc Pharmacy 83.7 ml/min; Est GFR (African American) 74.6 ml/min; Est GFR (Non-African American) 64.4 ml/min
[2023-01-02] MEDS ORDERED: hydroCHLOROthiazide 25 MG TAB PO SCH (09:00)
--- NOTE | 2023-01-02 12:31 | Hospitalist Progress Note ---
Date of Service January 02, 2023 Assessment & Plan (1) TGA (transient global amnesia): Plan: Presented with transient global amnesia lasted for about 20 minutes History of migraine and has had aura without any headache Appreciate neurology input and recommendation Likely atypical migraine Investigations including CT of the head, MRI of the head, CTA and echo were unremarkable Blood pressure was little bit high but remained normal throughout the night Patient remains totally asymptomatic and wants to go home She will have 30-day Holter monitor as an outpatient Hyperlipidemia Has triglyceride mildly elevated at 170 and low HDL of 29 Discussed about exercise and weight reduction He will follow-up with his primary care physician for possible statin therapy (2) Episode of confusion: Plan: As above Has sleep apnea Check hemoglobin A1c --5.2 DVT prophylaxis per Lovenox subcu Full code (3) Hypertension: Plan: Blood pressure noted to be high at systolic 157/110 Later on it was normal in the emergency room We will continue all of his medications for blood pressure Spironolactone was discontinued We will continue hydrochlorothiazide 12.5 daily Follow-up with the PCP in 1 week (4) History of migraine: Plan: History of migraine Has an aura before the headache Current transient amnesia could be secondary to aura from migraine Appreciate neurology's input and that this matter Admission and Anticipated Discharge Date Admission Date: January 01, 2023 Subjective 01/02/2023 The patient was seen and examined in medical telemetry unit He has been feeling much better and the blood pressure noted to be little high at 150/110 He denies any symptoms of headache, shortness of breath, chest pain or palpitations He does not have any more memory impairment Review of Systems Review of Systems: All systems reviewed and are unremarkable except as noted below Physical Exam Physical Exam: Sitting on a chair without any acute distress Constitutional: well developed and well nourished; not ill appearing Eyes: PERRL, conjunctivae normal, anicteric sclerae ENMT: external ear and nose normal, oropharynx normal Neck: trachea midline, no thyromegaly Respiratory: no respiratory distress Auscultation: lungs clear to auscultation bilaterally Cardiovascular: Rate/Rhythm: regular rate and regular rhythm; not tachycardic Heart Sounds: normal S1 and normal S2; no murmur Extremities: no edema Gastrointestinal (Abdomen): Inspection/Auscultation: normal bowel sounds; abdomen not distended Percussion/Palpation: abdomen soft; abdomen nontender Musculoskeletal: No acute arthritis involving any of the joint Neurologic: normal touch/pain/proprioception and moves all extremities; no focal motor deficits Psychiatric: A+Ox3, euthymic affect Lymphatic: no cervical or axillary lymphadenopathy Results & Data Results & Data Vital Signs (Past 12 Hours) Vital Signs Temp Pulse Pulse Resp BP BP Pulse Ox 01/02/23 11:30 37 C 66 14 150/110 H 95 01/02/23 07:40 37 C 63 14 125/100 91 01/02/23 07:49 50 L 01/02/23 04:05 36.8 C 66 18 133/71 94 O2 Del Method 01/02/23 11:30 Room Air 01/02/23 07:40 Room Air 01/02/23 07:49 01/02/23 04:05 Room Air Laboratory Results Short CBC 01/02/23 Range/Units 07:30 WBC 5.54 (4.8-10.8) K/ul Hgb 15.4 (14.0-18.0) g/dl Hct 44.5 (42.0-52.0) % Plt Count 273 (130-400) K/uL BMP 01/02/23 07:30 Sodium 140 Potassium 4.0 Chloride 104 Carbon Dioxide 31 BUN 25 H Creatinine 1.28 Glucose 97 Calcium 9.9 Medications Administered Current Inpatient Medications Acetaminophen (Acetaminophen 325 Mg Tab) 650 mg PO Q4H PRN PRN Reason: Pain or Fever Stop: 01/31/23 03:33 Last Admin: 01/01/23 17:35 Dose: 650 mg Amlodipine Besylate (Amlodipine Besylate 5 Mg Tab) 10 mg PO HS ALEAH Stop: 01/31/23 21:44 Last Admin: 01/01/23 22:25 Dose: 10 mg Cetirizine HCl (Cetirizine Hcl 10 Mg Tablet) 10 mg PO DAILY ALEAH Stop: 01/31/23 08:59 Last Admin: 01/02/23 08:31 Dose: 10 mg Enoxaparin Sodium (Enoxaparin Inj 40 Mg/0.4 Ml Syr) 40 mg SQ QAM ALEAH Stop: 01/31/23 08:59 Last Admin: 01/02/23 08:31 Dose: 40 mg Fluticasone Propionate (Fluticasone Propionate Na Spr 16 Gm Btl) 1 sprays NA DAILY ALEAH Stop: 01/31/23 08:59 Last Admin: 01/02/23 08:30 Dose: 1 sprays Hydrochlorothiazide (Hydrochlorothiazide 25 Mg Tab) 12.5 mg PO QAM [facility] Stop: 02/01/23 08:59 Last Admin: 01/02/23 08:28 Dose: 12.5 mg Promethazine HCl 12.5 mg/ (Sodium Chloride) 50.5 mls @ 202 mls/hr IV Q6H PRN PRN Reason: Nausea And Vomiting Stop: 01/31/23 03:33 Lisinopril (Lisinopril 40 Mg Tab) 40 mg PO DAILY [facility] Stop: 01/31/23 08:59 Last Admin: 01/02/23 08:30 Dose: 40 mg Lorazepam (Lorazepam 0.5 Mg Tab) 0.25 mg PO TID PRN PRN Reason: Anxiety Stop: 01/31/23 03:33 Multivitamins (Multivitamin Tab) 1 tab PO DAILY [facility] Stop: 01/31/23 08:59 Last Admin: 01/02/23 08:29 Dose: 1 tab Tramadol HCl (Tramadol Hcl 50 Mg Tablet) 25 - 50 mg PO Q4H PRN PRN Reason: Pain Stop: 01/31/23 03:33
--- NOTE | 2023-01-03 09:18 | Discharge Summary ---
Date of Service January 02, 2023 Admission HPI Per Admitting Provider History obtained from patient and records. Medical history significant for hypertension, hyperlipidemia, CODY on CPAP. For about 20 years now patient will have intermittent hemicranial headaches occurring about 3 times a year associated with visual spots/aura which patient self diagnosed to be migraine attacks. Patient had transient left-sided headache yesterday afternoon which has remitted to migraine attack. A few hours later, patient felt confused, did not know where he was, could not remember a lot of things. No slurred speech, arm or leg weakness, or seizures noted at home. Patient denies chest pain, SOB. No unusual stress at home. Tick exposure during hunting last week. Improved symptoms at time of arrival at the ER. Medical History as above Surgical History : Knee surgeries, laparoscopic hernia repair Family History : Heart disease, DM, prostate cancer, dementia, stroke Personal/Social history : Non-smoker, occasional EtOH intake, retired [employer] Admission Exam Per Admitting Provider Physical Exam: GENERAL: Comfortable, pleasant, no respiratory distress SKIN: Normal color, warm HEENT: [place] palpebral conjunctivae, no ptosis, dry buccal mucosa NECK : Supple, no tenderness CHEST : CTA, no tenderness HEART : RRR, no obvious murmurs ABDOMEN: Some distention, nontender EXTREMITIES : No LE swelling/tenderness, no other conspicuous deformities noted NEUROLOGIC : Coherent, no facial asymmetry, no other gross focality Principal Diagnosis Transient global amnesia-resolved, atypical migraine, hypertension Discharge Exam Sitting on a chair without any acute distress Constitutional well developed and well nourished; not ill appearing Eyes PERRL, conjunctivae normal, anicteric sclerae ENMT external ear and nose normal, oropharynx normal Neck trachea midline, no thyromegaly Respiratory no respiratory distress Auscultation: lungs clear to auscultation bilaterally Cardiovascular Rate/Rhythm: regular rate and regular rhythm; not tachycardic Heart Sounds: normal S1 and normal S2; no murmur Extremities: no edema Gastrointestinal (Abdomen) Inspection/Auscultation: normal bowel sounds; abdomen not distended Percussion/Palpation: abdomen soft; abdomen nontender Neurologic normal touch/pain/proprioception and moves all extremities; no focal motor deficits Psychiatric A+Ox3, euthymic affect Lymphatic no cervical or axillary lymphadenopathy Discharge Data Allergies Allergy/AdvReac Type Severity Reaction Status Date / Time No Known Allergies Allergy Unverified 01/01/23 02:41 Consultations 01/01/23 01:57 ED Decision to Admit Stat 01/01/23 06:10 Consult Neurology Routine Ordered Studies 12/31/22 22:41 CT head/brain wo con Stat 01/01/23 02:26 MRI Brain [MR brain wo/w con] Stat 01/01/23 06:10 Carotid duplex [US carotid doppler BI] Routine Hospital Course (1) TGA (transient global amnesia): Presented with transient global amnesia lasted for about 20 minutes History of migraine and has had aura without any headache Appreciate neurology input and recommendation Likely atypical migraine Investigations including CT of the head, MRI of the head, CTA and echo were unremarkable Blood pressure was little bit high but remained normal throughout the night Patient remains totally asymptomatic and wants to go home She will have 30-day Holter monitor as an outpatient Hyperlipidemia Has triglyceride mildly elevated at 170 and low HDL of 29 Discussed about exercise and weight reduction He will follow-up with his primary care physician for possible statin therapy (2) Episode of confusion: As above Has sleep apnea Check hemoglobin A1c --5.2 DVT prophylaxis per Lovenox subcu Full code (3) Hypertension: Blood pressure noted to be high at systolic 157/110 Later on it was normal in the emergency room We will continue all of his medications for blood pressure Spironolactone was discontinued We will continue hydrochlorothiazide 12.5 daily Follow-up with the PCP in 1 week (4) History of migraine: History of migraine Has an aura before the headache Current transient amnesia could be secondary to aura from migraine Appreciate neurology's input and that this matter Total Time Total Time Spent Total Time Spent (In Minutes): 35 minutes Discharge Plan Discharge Items Patient Disposition: Home - Self-Care Reason For Visit: ESTRELLA, TRANSIENT CONFUSION Discharge Diagnosis: Transient global amnesia-resolved, atypical migraine, hypertension Condition on Discharge: Good Activity: Resume your previous activity Non-emergency contact: Primary Care Provider Call non-emergency contact if: you have any medication questions and your symptoms worsen Follow-up/Referrals: Opal Hong DO [Primary Care Provider] - (Date & Time 01/07/2023 11:10 AM Provider Opal Hong DO [facility] ) Diet: Heart Healthy and Low Sodium (2gm) Addtl Attending Provider Instructions: Please take precautions to avoid falls Take your medications as advised Has had a follow-up appointment with PCP and get heart monitor for 30 days as advised Please have your blood pressure checked at PCPs office and adjust medications accordingly Advised to initiate statin therapy for low HDL Pending Studies at Discharge: No Stand-Alone Forms[facility] Medications and DC Order Prescriptions: Continued multivitamin Tablet 1 tab PO DAILY omega-3 fatty acids 1,000 mg Capsule 0 mg PO DAILY amlodipine 10 mg tablet 10 mg PO DAILY lisinopril 40 mg tablet 40 mg PO DAILY cetirizine [Zyrtec] 10 mg Tablet 10 mg PO DAILY fluticasone propionate [Flonase Allergy Relief] 50 mcg/actuation [place],Suspension 1 spray INTRANASAL DAILY Rx Instructions: administer into each nostril Changed hydrochlorothiazide 25 mg tablet 12.5 mg PO DAILY Qty: 1 0RF Discontinued spironolactone 25 mg tablet 25 mg PO DAILY Discharge Orders: Discharge Order (Routine); Ordered 01/02/23 Ordered By: Dhaval Allison Admission Data Admit Date/Time: 01/01/23 02:24 Attending Provider: Dhaval Allison Admit Provider: Romain Juarez Primary Care Provider: Opal Hong Other Providers: Romain Juarez ; Paul Armendariz Other Interventions: Discharge Summary Assessment (RN) Last Done: 01/02/23 15:47
== END 2023-01-02 16:30 | disposition home or self-care (01) ==
LOC: EDINP 21:20 → ED 21:20 → 2N 01-01 03:33